=== PATIENT | female | born 1940 | race Caucasian/White ===

== ENCOUNTER 2017-01-26 17:15 | Observation (INO) | payer MEDICARE ==
[~2017-01-26] VITALS: Ht 160 cm; Wt 95.0 kg
[2017-01-26] VITALS (7 sets, daily range): BP systolic 125–158; BP diastolic 42–81; PULSE 71–84; RESP 14–18; O2SAT 97–98
--- NOTE | 2017-01-26 17:25 | ED.REPORT ---
HPI-Neurologic Deficit Date of Service Jan 26, 2017 ED Provider: Dr. Santizo Pt is a 76 year old female with a hx of DJD, HTN and chronic back pain presenting to the ED from complaining of right sided facial numbness that began at 1500 today while gardening. Her daughter in law also reports a right sided facial droop. On arrival she only has top of head numbness. Denies any numb extremities, or any other symptoms at this time. Nursing Notes Stated Complaint: FACIAL NUMBNESS Chief Complaint: Stroke Symptoms Nursing Notes Reviewed: Yes Allergies: Coded Allergies: Sulfa (Sulfonamide Antibiotics) (Verified Allergy, Intermediate, hives, 05/05) clotrimazole (Verified Allergy, Intermediate, rash, 01/26/17) General Time Seen by Provider: 17:29 Chief Complaint Other (Facial numbness) Hx Obtained From: Patient Arrived By: Walk-in Sudden in Onset?: Yes Onset Occurred: 1 - 4 hours ago Symptom Duration: Since onset Severity: Current: No pain currently Severity: Maximum: No pain Recent Healthcare: No recent doctor visit, No recent hospitalization Similar Sx Previous: No Risk Factors NIH Stroke Scale Level of Consciousness: Alert and responsive (0) Ask Month & Age: Both questions right (0) Open/Close Eyes/Hand Mold Unloader: Performs both tasks (0) Horizontal EO Movements: None (0) Visual Sanders: No visual loss (0) Facial Palsy: Normal symmetry (0) Right Arm Motor Drift (10s): No drift 10 sec (0) Left Arm Motor Drift (10s): No drift 10 sec (0) Right Leg Motor Drift (5s): No drift 5 sec (0) Left Leg Motor Drift (5s): No drift 5 sec (0) Limb Ataxia FNF/Heel-Gil: No ataxia (0) Sensation (Arms/Legs/Face): No sensory loss (0) Language Aphasia: No aphasia, normal (0) Dysarthria: No dysarthria, normal (0) Extinction/Inattention: No exctinct/inattent (0) NIHSS Score: 0 Time NIHSS Performed: 17:30 Past Medical History Past Medical History Spinal stenosis Reports: Hypertension Past Surgical History denies Smoking History Unknown if Ever Smoker Ambulatory Status Independent Review of Systems Neurologic: Reports: Numbness (Facial), Denies: Change LOC, Confusion, Focal weakness, Headache, Problem walking, Slurred speech, Syncope, Vision change Complete sys rev & neg: except as marked. Physical Exam Initial Vital Signs Vital Signs (First) Date Time Temp Pulse Resp B/P Pulse Ox O2 Delivery O2 Flow Rate FiO2 01/26/17 17:16 36.9 81 16 127/73 98 Room Air Initial VS: Reviewed ENT: Mucous membranes moist, Conjunctiva normal, No scleral icterus Neck: Supple, Non-tender, Full range of motion Abdomen / GI: Soft, Non-tender, No guarding, No rebound, No distention Extremities: Vascular intact, Neuro intact, No swelling, No tenderness Skin: Warm, Dry, No cyanosis Psychiatric: Mood/affect normal, Behavior normal, Normal thought content General/Constitutional: Awake, Alert, No acute distress, Well appearing, Well developed, Well hydrated Head / Eyes: Atraumatic, Normocephalic, PERRL, EOMI, No nystagmus Respiratory / Chest: Atraumatic, Breath sounds NL, Breath sounds = bilat, No respiratory distress Cardiovascular: Heart rate NL, Regular rhythm, Heart sounds NL, Peripheral circulation NL Neurologic: Oriented X3, Speech NL, No motor deficits, No sensory deficits, CN II - XII intact, Reflexes equal bilat, Cerebellar NL Interpretation & Diagnostics Lab Results Interpretation Result Diagram: 01/26/17 1732 01/26/17 1732 Test 01/26/17 17:32 White Blood Count 8.7th/mm3 (3.8-10.1) Red Blood Count 4.40mil/mm3 (3.90-5.20) Hemoglobin 12.5g/dL (12.0-15.6) Hematocrit 37.5% (35.0-46.0) Mean Corpuscular Volume 85.2fL (81-100) Mean Corpuscular Hemoglobin 28.4pg (27.0-35.0) Mean Corpuscular Hemoglobin Concent 33.3% (32.0-37.0) Red Cell Distribution Width 14.4% (12.3-15.4) Platelet Count 303bil/L (150-400) Neutrophils (%) (Auto) 61.4% (40-74) Lymphocytes (%) (Auto) 22.8% (14-46) Monocytes (%) (Auto) 11.2% (4-12) Eosinophils (%) (Auto) 3.7% (0-5) Basophils (%) (Auto) 0.7% (0-3) Sodium Level 135mEq/L (134-144) Potassium Level 4.1mEq/L (3.5-5.2) Chloride Level 98mEq/L (97-108) Carbon Dioxide Level 19mmol/L (18-29) Blood Urea Nitrogen 17mg/dL (8-27) Creatinine 0.77mg/dL (0.57-1.00) Estimat Glomerular Filtration Rate 104mL/min (>59) Glucose Level 93mg/dL (60-99) Calcium Level 9.4mg/dL (8.5-10.1) Total Bilirubin 0.3mg/dL (0.0-1.2) Aspartate Amino Transf (AST/SGOT) 27U/L (0-50) Alanine Aminotransferase (ALT/SGPT) 15U/L (0-32) Alkaline Phosphatase 36U/L (25-165) Total Protein 7.2g/dL (6.4-8.4) Albumin 4.0g/dL (3.4-5.0) Hold Reeves Top Tube Received (Received) ECG Interpretation ECG Interpretation: RBBB. Time: 18:15 Interpreted by: ED physician Normal ECG Interpretation: Normal rate (72), Normal sinus rhythm CT Head Interpretation IMPRESSION: 1. No acute intracranial process. 2. Moderate atrophy and chronic microvascular ischemic changes. Dictated by: Meagan Cardenas M.D. on 01/26/2017 at 18:07 Study: Head CT no contrast Interpretation / Wet Read by: Interpret - Radiologist Re-Eval/Medical Decision Med Decision/Clinical Course Pt is DNR. Likey a TIA. Patient will be admitted. Aspirin given. Re-Evaluation/Progress : Time of Eval: 18:21 Patient Status: Condition improved Re-Evaluation/Progress Note: Discussed CT results and plan for admission. Pt understands and agrees with plan. Consultation : Referral / Consult Name: Lani Flowers DO Consulted With: Hospitalist Call Returned at: 18:17 Fancy Needleworker: Will see patient, Agrees with plan, Accepts admit Counseled Regarding: Diagnosis, Lab results, Need for follow-up, When/why to return to ED Discharge & Departure Impression: Primary Impression: Transient ischemic attack Transient cerebral ischemia type: unspecified Qualified Code: G45.9 - Transient cerebral ischemic attack, unspecified Disposition: ADMITTED TO HOSPITAL Discharge Condition All VS Reviewed: Yes Condition: Improved Referrals: Michael Orozco MD (PCP) Scribe Attestation Portions of this note were transcribed by Angelica Stevens. I, Dr. Santizo personally performed the history, physical exam and medical decision-making; I reviewed and confirmed the accuracy of the information in the transcribed note. Signed by: Mariajose Orosco, 01/26/17 at 1821. copies to: Michael Orozco MD, Timothy S DO Jan 26, 2017 17:25 ANGELICA STEVENS Jan 26, 2017 17:36
[2017-01-26] MEDS ORDERED: 0.9% Sodium Chloride 1,000 ML IV ONE (17:27)
[2017-01-26 17:46] LABS: BASOPHILS % (AUTO) 0.7 % (0-3); EOSINOPHILS % (AUTO) 3.7 % (0-5); MONOCYTES % (AUTO) 11.2 % (4-12); Mean Corpuscular Hemoglobin 28.4 pg (27.0-35.0); Mean Corpuscular Volume 85.2 fL (81-100); NEUTROPHILS % (AUTO) 61.4 % (40-74); Platelet Count 303 bil/L (150-400)
--- NOTE | 2017-01-26 18:10 | DRSVH ---
PROCEDURE: CT BRAIN WITHOUT CONTRAST ([id number]) INDICATIONS: Stroke TECHNIQUE: Noncontrast 4.5 mm thick angled axial sections acquired from the foramen magnum to the vertex, with c oronal reformats. COMPARISON: None. FINDINGS: Image quality: Excellent. CSF spaces: Basal cisterns are patent. No extra-axial fluid collections. The ventricles are symmet georges in size and shape. Brain: No intracranial bleeds or masses. There is cerebral volume loss for age, with resultant vent ricular and sulcal prominence. There are periventricular and deep white matter chronic small vessel ischemic changes. There is intracranial internal carotid artery atherosclerosis. Skull and face: Calvarium and visualized facial bones appear intact, without suspicious lesions. Sinuses: Visualized sinuses and mastoids are clear. IMPRESSION: 1. No acute intracranial process. 2. Moderate atrophy and chronic microvascular ischemic changes. Dictated by: Meagan Cardenas M.D. on 01/26/2017 at 18:07 Approved by: Meagan Cardenas M.D. on 01/26/2017 at 18:08
[2017-01-26] MEDS ORDERED: Alum-Mag Hydrox-Simeth 30 mL Suspension PO PRN ×2 (18:30→21:10)
[2017-01-26] MEDS ORDERED: Ondansetron 2 mg/mL 2 mL Inj IVPUSH PRN ×2 (18:30→21:10)
[2017-01-26] MEDS ORDERED: LORA10CA9 PO (19:47)
[2017-01-26] MEDS ORDERED: MAGN250T29 PO (19:47)
[2017-01-26] MEDS ORDERED: LACT1CAP65 PO (19:47)
[2017-01-26] MEDS ORDERED: BECL8.7A6 INHALATION (19:47)
[2017-01-26] MEDS ORDERED: HYDR25TA4 PO (19:47)
[2017-01-26] MEDS ORDERED: NYST1POW29 MC (19:47)
[2017-01-26] MEDS ORDERED: LOSA50TA37 PO (19:47)
[2017-01-26] MEDS ORDERED: CALC500T9 PO (19:47)
[2017-01-26] MEDS ORDERED: ALBU8.5H2 INHALATION (19:47)
[2017-01-26] MEDS ORDERED: FENO160T14 PO (19:47)
[2017-01-26] MEDS ORDERED: ESCI20TA38 PO (19:47)
[2017-01-26] MEDS ORDERED: CLOB118S3 TP (19:47)
[2017-01-26] MEDS ORDERED: NAPR250T PO (19:47)
[2017-01-26] MEDS ORDERED: MILK150C2 PO (19:47)
[2017-01-26] MEDS ORDERED: NAPR500T PO (19:48)
--- NOTE | 2017-01-26 19:50 | NUR ---
Admission Note Pt admitted to [facility] at 1935 on stretcher from ER, alert and orientedx3, denies any pain/SOB/N/V/fever/chills. ambulated to bed after arrival,denies dizziness,vertigo, gait steady. BP158/81 HR84 RR18 PYT174% on RA, T36.8. Lung sounds clear, HR regular, no murmur or rubs, Tele applied SR 79 IVCD 1st AVB per quality assurance monitor chassis. Abdomen soft, nontender, BT active, no edema at extremities. Neuro check: Pt states tingling from right top of head to right face, speech normal, no facial droop noted, tongue midline,soft palate symmetrical, full strength at all extremities, no unilateral weakness noted with ambulation, sensation equal bilaterally at face, arms and legs. Call light oriented to pt and within reach, MD visited pt. Care ongoing.
[2017-01-26 20:34] LABS: APPEARANCE,URINE CLEAR (CLEAR,HAZY); COLOR,URINE YELLOW (YELLOW); OCCULT BLOOD,URINE NEGATIVE (NEGATIVE); PH,URINE 7.5 (5.0-8.0); UROBILINOGEN,URINE NORMAL (NORMAL)
[2017-01-26] MEDS ORDERED: Polyethylene Glycol (PEG) 17 Gm Powder PO PRN (21:10)
[2017-01-26] MEDS ORDERED: Labetalol 5 mg/mL 20 mL Inj IVPUSH PRN (21:10)
--- NOTE | 2017-01-26 21:28 | PCM.HPMED ---
Subjective Date of Service Jan 26, 2017 Primary Provider: Admitting Physician: Lani Flowers DO Primary Care Physician: Michael Orozco MD Attending Physician: Constanza Horton DO Admit Status: From the Emergency Department Chief Complaint: Right-sided facial numbness History of Present Illness: Flower Clancy is a 2-year-old woman with past medical history significant for DJD, hypertension and chronic back pain who presented to the [facility] emergency department from urgent care due to right-sided facial numbness that began at approximately 1500 today while gardening. The patient's symptoms resolved in about 1.5 hours after onset. She was with a family member who noted that she was having facial asymmetry and drooping on the right side. She also noted that the patient was slurring some of her words. The patient does not recall the slurring. Patient denies any change in cognition and recalls the entire events. She is no such prior episodes. Denies any gait instability or unilateral weakness of upper or lower extremities. She denies any blurred vision or headache. She does have a history of vertigo and does occasionally have dizziness. She does have a history of cold sores. When describing her numbness she does note that it was only on the lower half of her face and her drooping was only noted around the mouth but spared the forehead. NIH stroke scale performing emergency department was 0. In the emergency department her vitals were stable. CT brain was negative for any intra-cranial abnormality. Review of Systems: A comprehensive review of systems was conducted with the patient and found to be negative except as above in the History of Present Illness. Allergies Coded Allergies: Sulfa (Sulfonamide Antibiotics) (Verified Allergy, Intermediate, hives, 05/05) clotrimazole (Verified Allergy, Intermediate, rash, 01/26/17) Home Medications Losartan 50 mg daily Fenofibrate 150 mg daily Albuterol Qvar Escitalopram 20 mg daily Hydrochlorothiazide 25 mg daily Loratadine Naprosyn as needed for pain PMH DJD Spinal stenosis Hypertension Hyperlipidemia Depression Gluten Intolerance Surgical History Denies any past surgeries Family History Patient's father had a triple coronary artery bypass at age of 55 Social History Hx Alcohol Use: No Hx Substance Use: No Hx Tobacco Use: No Smoking Status: Never Smoker Exam Vital Signs Vital Sign - Last Date Time Temp Pulse Resp B/P Pulse Ox O2 Delivery O2 Flow Rate FiO2 01/26/17 19:33 36.9 77 16 130/66 97 Room Air Exam General: No acute distress, well-developed, well-nourished, appropriately interactive HEENT: Normocephalic, atraumatic. External ears without defect. Pupils equal, round, and reactive to light and accommodation. Anicteric sclerae, moist conjunctivae, and no lid lag. Oropharynx free of erythema and cobble stoning with moist mucosa. Neck: Supple with full range of motion. No jugular venous distension. No bruits. No lymphadenopathy or thyromegaly. Cardiovascular: Regular rate and rhythm with a grade 2 crescendo decrescendo systolic murmur Pulmonary: Clear to auscultation bilaterally with no crackles, wheezes, or rhonchi. Normal respiratory effort with no use of accessory muscles. Abdomen: Bowel tones present. Obese. Soft, nontender, nondistended. No hepatosplenomegaly or masses appreciated. Extremities: No clubbing, cyanosis, edema, or lymphadenopathy appreciated. Skin: Normal temperature, turgor, and texture; no rash, ulcers, or subcutaneous nodules appreciated. Neurological: Cranial nerves 2 through 12 bilaterally intact. Normal muscle strength, tone, and bulk of bilateral upper and lower extremities. Reflexes, coordination, and sensory function within normal limits. No known gait impairment. Benign neurological exam. Psychiatric: Normal mood and affect. Alert and oriented to person, place, and time. Lab and Diagnostics Result Diagram: 01/26/17 1732 01/26/17 173 X-Rays, CTs and MRIs CT BRAIN WITHOUT CONTRAST IMPRESSION: 1. No acute intracranial process. 2. Moderate atrophy and chronic microvascular ischemic changes. Dictated by: Meagan Cardenas M.D. on 01/26/2017 at 18:07 Assessment & Plan Flower Clancy is a 2-year-old woman with past medical history significant for DJD, hypertension and chronic back pain who presented to the [facility] emergency department from urgent care due to right-sided facial numbness that began at approximately 1500 today while gardening. Transient ischemic attack, present on admission, resolved -ABCD 2 score of 4 which correlates to a moderate risk of a CVA. Her 90 day progress is about 10%. -MRI stroke protocol tomorrow, CT angiogram head and neck tomorrow -Echocardiogram with bubble study -Telemetry monitoring -A1c, fasting lipid panel -ST, PT, OT -Permissive hypertension for 24 hours. We will hold off on giving the patient' s blood pressure medication today. Chronic issues, present on admission: Hypertension -Hold blood pressure medications today Hyperlipidemia -Check lipid panel -Initiate low-dose statin Asthma -Continue albuterol and Qvar Depression -Continue Escitalopram 20 mg daily CODE STATUS: DNR/DNI Patient is admitted under observation status with expected length of stay less than 2 midnights due to severity of presenting symptoms, risk of adverse event, and complexity of treatment plan. VTE Prophylaxis: Sub-Q Heparin (Unfractionated) Resuscitation Status: DNR/DNI:Do Not Resuscitate/Intubate Attending Statement The patient was seen and examined together with house staff on 01/26/2017 and I agree with the history, exam and plan as outlined in the note above. Lani Flowers DO Jan 26, 2017 19:35 Constanza Bartholomew DO Jan 27, 2017 05:33
[2017-01-26] MEDS ORDERED: CLOBETASOL PROPIONATE TP PRN (21:35)
[2017-01-26] MEDS ORDERED: Non-Formulary Medication (Nystatin 1 EACH) MC PRN (21:35)
[2017-01-27] VITALS (9 sets, daily range): BP systolic 110–133; BP diastolic 59–73; PULSE 69–88; RESP 18–20; O2SAT 95–99
[2017-01-27] MEDS ORDERED: Albuterol 2.5 mg/3 mL Inhalation Solution NEB PRN (07:00)
[2017-01-27] MEDS ORDERED: Fluticasone 100 mCg Inhaler INHALATION PRN (08:30)
--- NOTE | 2017-01-27 09:13 | NUR ---
Social Work-initial assessment/readiness for discharge: Data:See initial assessment. Pt is a 76 y/o female who was admitted on 01/26/17 for TIA per H&P. Pt's insurance is [employer] and PCP is Michael Orozco MD. EMR Reviewed. Pt's readmission score is 2. SW met with pt and daughter Lizzy at Bedside, SW role explained. Pt is alert and oriented x3. Pt resides at home with son Patrick and daughter in law Joi in [facility] where she remains independent with ADLS. Pt has capacity to self care, MD has no concerns, and pt is able to follow instructions and commands with RN. Pt uses either a cane or fww at baseline and does drive. Pt has no HH or SNF history. Pt has no intermediate accountant care insurance or VA benefits. SW discussed DPOA/ advanced directive, pt confirms she has not completed this, paperwork has been provided. PT, OT, and ST are pending. Pt's daughter Lizzy confirms she will be transport home. SW provided pt with discharge planning checklist booklet and encouraged pt to call with any questions. SW provided phone number and plan on white board in room. No anticipate discharge needs. SW to follow up post therapy evaluations if any needs arise. SW will continue to follow. Assessment:pt who is independent at baseline. Plan:Pt to discharge home when medically stable via POV. No anticipate discharge needs. SW to follow up post therapy evaluations if any needs arise. SW will continue to follow. POLI Mejia Addendum: 01/27/17 at 0918 by CARLOS LOVE Amended: Links added. Addendum: 01/27/17 at 1104 by CARLOS LOVE PT/OT/ST have cleared pt for home. Pt recommending outpt PT. POLI Mejia
--- NOTE | 2017-01-27 09:18 | NUR ---
Evaluation completed. Please go to "Notes" then click on "Assessments and Notes" (bottom left corner of screen). Then select appropriate discipline tab on top of screen.
--- NOTE | 2017-01-27 09:51 | NUR ---
Evaluation completed. Please go to "Notes" then click on "Assessments and Notes" (bottom left corner of screen). Then select appropriate discipline tab on top of screen.
--- NOTE | 2017-01-27 10:27 | NUR ---
Case Management: PALOMINO and Medicare Part D pamphlet delivered and explained to patient. Signed original placed in chart. Copy left at bedside. Malia Trujillo RN
--- NOTE | 2017-01-27 11:05 | NUR ---
Social Work-multidisciplinary rounds: Per MD, pt will likely not be ready to discharge today, maybe tomorrow. PT/OT/ST have cleared pt for home, PT recommending outpt services. No anticipated discharge needs. POLI Mejia
--- NOTE | 2017-01-27 12:51 | NUR ---
Evaluation completed. Please go to "Notes" then click on "Assessments and Notes" (bottom left corner of screen). Then select appropriate discipline tab on top of screen.
--- NOTE | 2017-01-27 13:08 | DRSVH ---
[facility] [address] [place] [address] Echocardiogram Report Name: PHANI LOMAS HStudy Date: 01/27/2017 Height: 63 in Hospital Exam Location: [facility] Weight: 209 lb Gender: Female BSA: 2.0 m2 : 1940 Age: 76 yrs BP: 122/69 mmHg Reason For Study: TIA Ordering Physician: Performed By: Catherine Castro Referring Physician: Michael Orozco Interpretation Summary There is mild asymmetric left ventricular hypertrophy. Left ventricular systolic function is normal. The ejection fraction is estimated to be 65-70%. LVEF has not changed since prior study. There are no obvious focal wall motion abnormalities noted but poor endocardial definition reduces the sensitivity for the detection of such. There appears to be outflow obstruction with peak velocity reaching ~3.3 m/sec during Valsalva maneuver s. Visually there is no gross findings for systolic anterior motion of anterior mitral leaflet but there appears to be mid LV cavity obstruction. Clinicall correlation is recommended. The right ventricle is normal in size and function. The left atrium is mildly dilated. Right atrial size is normal. Injection of contrast documented no interatrial shunt. There is moderate aortic valve sclerosis. There is no hemodynamically significant valvular aortic stenosis. There is moderate to severe mitral annular calcification. There is no other significant valvular heart disease. The aortic root is normal size. Procedure: A two-dimensional transthoracic echocardiogram with color flow and Doppler was performed. The study quality was technically adequate. Comparison is made with the echocardiogram of 07-21-13. The patient was in normal sinus rhythm during the exam. Left Ventricle: The left ventricle is normal in size. There is mild asymmetric left ventricular hypertrophy. There appears to be outflow obstruction with peak velocity reaching ~3.3 m/sec during Valsalva maneuver s. Visually there is no gross findings for systolic anterior motion of anterior mitral leaflet but there appears to be mid LV cavity obstruction. Clinicall correlation is recommended. Left ventricular systolic function is normal. The ejection fraction is estimated to be 65-70%. There are no obvious focal wall motion abnormalities noted but poor endocardial definition reduces the sensitivity for the detection of such. Diastolic function could not be accurately assessed due to confounding valvular disease. Right Ventricle: The right ventricle is normal in size and function. Atria: The left atrium is mildly dilated. Right atrial size is normal. Injection of contrast documented no interatrial shunt. Mitral Valve: The mitral valve leaflets appear mildly thickened, but open well. There is moderate to severe mitral annular calcification. There is trace mitral regurgitation. Aortic Valve: There is moderate aortic valve sclerosis. Leaflet mobility is mildly reduced. There is no hemodynamically significant valvular aortic stenosis. No aortic regurgitation is present. Tricuspid Valve: The tricuspid valve is normal in structure and function. No tricuspid regurgitation. Pulmonic Valve: The pulmonic valve is not well visualized. There is no pulmonic valvular regurgitation. There is no other significant valvular heart disease. Great Vessels: The aortic root is normal size. The dimensions of the ascending aorta are normal. The IVC is of normal diameter and collapses greater than 50% with a sniff. This suggests a low right atrial pressure of 3 mm Hg. Pericardium/ Pleura There is no pericardial effusion. There is no pleural effusion. MMode/2D Measurements & Calculations LVIDd LA dimension: 3.7 cm RA long axis: 4.7 cm LVOT diam: 2.0 cm : 3.9 cm AoV Openin.3 cm LVIDs LA A2 area: 24.2 cm RA area: 13.3 cm Ao root diam : 2.0 cm LA A4 area: 24.3 cm RA vol: 32.0 ml FS: 49.9 % LA length (vol) RA : 16.2 ml/m Aortic Jxn: 2.9 cm IVSd: 1.2 cm RVDd major: 5.5 cm asc Aorta Diam LVPWd LA vol: 76.8 ml : 0.8cm LA vol index Ao Arch Diam (Prox Trans): 2.9 cm IVC diam: 1.5 cm DAREK (plan) LV jeong. diameter/BSA LV sys. diameter/BSA RVD1 (basal) : 2.8 cm2 (cm/m^2): 2.0 (cm/m^2): 0.99 : 3.9 cm RVD2 (mid) : 3.5 cm Doppler Measurements & Calculations Ao V2 max MV E max anirudh MV E/A: 0.84 PA V2 max : 186.0 cm/sec : 137.6 cm/sec Med Peak E' Anirudh : 76.7 cm/sec Ao max PG MV A max anirudh PA mean PG : 13.8 mmHg : 162.9 cm/sec E/E' med: 29.0 Ao mean PG MV P1/2t: 89.4 msec Lat Peak E' Anirudh PA Accel Time : 0.18 sec LVOT Max Anirudh E/E' lat: 24.7 : 103.1 cm/sec E/e' average DAREK(I,D): 2.0 cm sev ratio MV A dur: 0.17 sec MV dec time MV P1/2t max anirudh Ao V2 mean LV V1 max PG : 0.31 sec : 121.7 cm/sec MVA(P1/2t): 2.5 cm2 Ao V2 VTI: 41.2 cm LV V1 VTI DAREK(V,D): 1.7 cm2 : 26.8 cm PA V2 mean DAREK indexed to BSA : 49.9 cm/sec (cm^2/m^2): 1.00 Reading Physician:KERRI
--- NOTE | 2017-01-27 13:33 | DRSVH ---
PROCEDURE: MRI STROKE PROTOCOL ([id number]) Pre- and post-contrast brain MRI, non-contrast brain MR angiogram, pre- and postcontrast neck MR kiko ogram INDICATIONS: TIA TECHNIQUE: Brain: Noncontrast axial T1 spin echo, axial T2 fast spin echo, sagittal and axial FLAIR, coronal T2 fast spin echo, axial gradient echo, axial diffusion and ADC through the brain. After the administr ation of contrast, axial 3D VIBE of the cranial vasculature and brain. Brain MRA: Non-contrast 3-D time of flight MR angiogram, with multiple comvamz-asbdxxger-rdszempjfe (MIP) reformats performed. Neck MRA: Axial and sagittal TruFISP through the neck. Coronal dynamic MR angiogram during administ ration of contrast in the arterial and venous phases, with 3-dimenstional bsjmmsd-lnlqwqkjj-ptgffxvxk n (MIP) reformats constructed from subtraction images. COMPARISON: None. FINDINGS: Image quality: Excellent. BRAIN: CSF spaces: Ventricles are normal in size and shape. Basal cisterns are patent. No extra-axial flu id collections. Brain: No intracranial bleeds or mass effects. Hutchison-white matter interface is normal. Diffusion we ighted images show no acute ischemic insults. Brainstem appears normal. Normal intravascular flow v oids are present. No abnormal intracranial enhancement. Skull and face: Calvarial marrow signal is normal. Orbits appear normal. Sinuses: Sinuses and mastoids are clear. BRAIN MR ANGIOGRAM: Anterior circulation: Intracranial internal carotid arteries are normal in size and enhancement. Th e flow within the paired anterior cerebral arteries is normal and symmetric. The flow within the mid dle cerebral arteries is normal and symmetric. The anterior communicating artery is seen. No stenos es, occlusions, or aneurysms. Posterior circulation: The visualized portions of the vertebral arteries demonstrate normal caliber, and join to form a normal appearing basilar artery. The flow within the posterior cerebral arteries is normal and symmetric. No stenoses, occlusions, or aneurysms. NECK MR ANGIOGRAM: Carotids: Great vessels demonstrate a conventional anatomy as they arise from the aortic arch. The origins of the common carotid arteries appear patent. The calibers and courses of both common caroti d arteries are normal. The bifurcation regions appear normal bilaterally. The internal carotid luz maria hua demonstrate normal course and caliber. Posterior circulation: The origins of the vertebral arteries appear patent. More superior portions of both vertebral arteries demonstrate normal course and caliber, and join to form a normal appearing basilar artery. It is noted that there are several areas of short segment stenosis bilaterally with in the midportion of the vertebral arteries, less than 50% on the right and approximately 50% on the left. Miscellaneous: Subclavian arteries appear patent. Pre-contrast images through the neck show no soft tissue abnormalities. IMPRESSION: 1. No acute intracranial process. 2. Mild atrophy and chronic microvascular ischemic changes. 3. No areas of hemodynamically significant stenosis, vascular occlusion or aneurysmal dilation within the posterior circulation. 4. No areas of hemodynamically significant stenosis, vascular occlusion or aneurysmal dilation within the anterior circulation. 5. Several scattered areas of short segment stenosis within the mid vertebral arteries as above. Othe rwise, no areas of hemodynamically significant stenosis, vascular occlusion or aneurysmal dilation wi thin the neck vasculature. The estimate of stenosis included in the report of the imaging study was calculated using the NASCET method Dictated by: Meagan Cardenas M.D. on 01/27/2017 at 13:20 Approved by: Meagan Cardenas M.D. on 01/27/2017 at 13:31
[2017-01-27] MEDS: Heparin 5,000 Unit/mL Inj SUBQ SCH (18:36)
--- NOTE | 2017-01-27 19:14 | NUR ---
Neuros Some numbness on R side of head this AM. Further neuros WNL and baseline. Provider contacting neurology. Plan is to d/c in AM. Tele in place, SL and IND activity with cane.
--- NOTE | 2017-01-27 23:49 | PCM.PNMED ---
Subjective Date of Service Jan 27, 2017 Subjective Patient is seen and examined. She says that she has only had symptoms for an hour and half which resolved upon arrival to the ER after a few minutes. She has been feeling fine just wanting to know the results of her tests. She says that in the past she has not tolerated statin that she was put on fenofibrate it does not appear that she has aspirin daily aspirin at home. Exam Vital Signs Vital Sign - Last Date Time Temp Pulse Resp B/P Pulse Ox O2 Delivery O2 Flow Rate FiO2 01/27/17 12:37 36.7 75 18 110/62 97 Room Air Intake and Output 01/26/17 01/26/17 01/27/17 Cumulative From/Thru 15:00 23:00 07:00 01/26/17 17:16 - 01/27/17 06:32 Intake Total 1000 ml 300 ml 1300 ml Output Total 250 ml 900 ml 1150 ml Balance 750 ml -600 ml 150 ml Intake Oral 300 ml 300 ml IV Total 1000 ml 1000 ml Output Urine Total 250 ml 900 ml 1150 ml # Bowel Movements 0 0 Exam Gen.: No acute distress HEENT: Normocephalic, atraumatic Heart: Regular rate and rhythm no S3-S4 murmurs Lungs: Clear to auscultation no crackles or wheezes Abdomen soft nontender normal bowel sounds Neurological exam: Cranial nerves II-12 are grossly normal, gagging deferred and Babinski's, Romberg's, alternating hands, finger to nose test unremarkable Psych: No anxiety or agitation IVs and Medications IV Fluids None Medications Reviewed: Medications were reviewed in detail Lab and Diagnostics Result Diagram: 01/26/17 1732 01/26/171731 X-Rays, CTs and MRIs CT BRAIN WITHOUT CONTRAST IMPRESSION: 1. No acute intracranial process. 2. Moderate atrophy and chronic microvascular ischemic changes. Dictated by: Meagan Cardenas M.D. on 01/26/2017 at 18:07 Additional Diagnostics There is mild asymmetric left ventricular hypertrophy. Left ventricular systolic function is normal. The ejection fraction is estimated to be 65-70%. LVEF has not changed since prior study. There are no obvious focal wall motion abnormalities noted but poor endocardial definition reduces the sensitivity for the detection of such. There appears to be outflow obstruction with peak velocity reaching ~3.3 m/sec during Valsalva maneuver s. Visually there is no gross findings for systolic anterior motion of anterior mitral leaflet but there appears to be mid LV cavity obstruction. Clinicall correlation is recommended. The right ventricle is normal in size and function. The left atrium is mildly dilated. Right atrial size is normal. Injection of contrast documented no interatrial shunt. There is moderate aortic valve sclerosis. There is no hemodynamically significant valvular aortic stenosis. There is moderate to severe mitral annular calcification. There is no other significant valvular heart disease. The aortic root is normal size. Assessment & Plan Flower Clancy is a 2-year-old woman with past medical history significant for DJD, hypertension and chronic back pain who presented to the [facility] emergency department from urgent care due to right-sided facial numbness that began at approximately 1500 today while gardening. Transient ischemic attack, present on admission, resolved -ABCD 2 score of 4 which correlates to a moderate risk of a CVA. Her 90 day progress is about 10%. -MRI stroke protocol tomorrow, CT angiogram head and neck tomorrow -Echocardiogram with bubble study -Telemetry monitoring -A1c, is 5.6 -fasting lipid panel within normal -ST, PT, OT -Permissive hypertension for 24 hours. We will hold off on giving the patient' s blood pressure medication for 24 hrs. - TTE showed: "There is mild asymmetric left ventricular hypertrophy. Left ventricular systolic function is normal. The ejection fraction is estimated to be 65-70%. LVEF has not changed since prior study. There are no obvious focal wall motion abnormalities noted but poor endocardial definition reduces the sensitivity for the detection of such. There appears to be outflow obstruction with peak velocity reaching ~3.3 m/sec during Valsalva maneuver s.Visually there is no gross findings for systolic anterior motion of anterior mitral leaflet but there appears to be mid LV cavity obstruction. Clinicall correlation is recommended. The right ventricle is normal in size and function. The left atrium is mildly dilated. Right atrial size is normal. Injection of contrast documented no interatrial shunt. There is moderate aortic valve sclerosis. There is no hemodynamically significant valvular aortic stenosis. There is moderate to severe mitral annular calcification. There is no other significant valvular heart disease. The aortic root is normal size." -- Started on daily aspirin, atorvastatin, heparin subcutaneous for prophylaxis -- Discussed case with Dr. Olguin from [facility] neurology who reviewed her MRI imaging, he does not see a need for immediate follow-up for this but perhaps in a year. -- Discussed the echo findings with Dr. High would get the echo, he says that she may be dehydrated the obstruction that was noted in the echo is not structural rather it is a functional one. He recommends the patient does not get dehydrated, she does not lift weights, and limit bearing down her Valsalva type maneuvers as she might become syncopal from lack of cardiac output Chronic issues, present on admission: Hypertension chronic active -BP meds are restarted -- Hyperlipidemia, chronic active -Lipid PanelWithin normal - Patient is an atorvastatin 10 mg daily tolerated just fine Asthma -Continue albuterol and Qvar Depression -Continue Escitalopram 20 mg daily CODE STATUS: DNR/DNI Patient is admitted under observation status with expected length of stay less than 2 midnights due to severity of presenting symptoms, risk of adverse event, and complexity of treatment plan. Patient can be discharged home in the a.m. on statin, ziol patch as she has some left atrial dilation, aspirin VTE Prophylaxis: Sub-Q Heparin (Unfractionated) VTE Mechanical Devices: Intermittant Pneumatic CD Resuscitation Status: DNR/DNI:Do Not Resuscitate/Intubate Time spent 45 min Carla Dominique DO Jan 27, 2017 14:42
[2017-01-28] MEDS: Heparin 5,000 Unit/mL Inj SUBQ SCH ×2 (00:36→08:30)
--- NOTE | 2017-01-28 05:23 | NUR ---
Noc/Activity Pt is alert and oriented. Pleasant and cooperative with care. No slurring of speech or tongue deviation. Symmetrical smile noted. Bilateral equal bar tender and lower extremity strength for age. Reports of numbness on the right side of scalp. HS meds administered as scheduled. VSS and has been afebrile.
[2017-01-28 09:07] VITALS: BP 122/68; PULSE 78; RESP 18; O2SAT 97
--- NOTE | 2017-01-28 10:00 | NUR ---
Brain MRI negative for acute changes. Swallowing function is at baseline. ST will sign off at this time.
--- NOTE | 2017-01-28 10:37 | NUR ---
Social Work-multidisciplinary rounds: Per MD, pt will likely discharge home today. PT/OT have cleared pt for home no needs. No discharge needs identified. POLI Mejia
[2017-01-28 11:20] VITALS: PULSE 85
[2017-01-28] MEDS ORDERED: ATOR10TA66 PO (12:57)
[2017-01-28] MEDS ORDERED: ASPI325T32 PO (12:59)
--- NOTE | 2017-01-28 13:18 | PCM.DIMED ---
Discharge Instructions Date of Service Jan 28, 2017 Dates of Hospitalization Jan 26, 2017 at 19:21 Discharge Diagnosis Discharge Diagnosis TIA, HTN, chronic back pain, Hyperlipidemia Diet Discharge Diet: Heart Healthy Activity Discharge Activity: Outpatient Physical Therapy Call your provider Call your provider for: Fever or Chills, Shortness of breath, Bleeding, Chest pain, Vomitting, Excessive diarrhea, Weakness (unilateral), Other Patient Instructions Patient Instructions Please take aspirin, and statin daily Please f/u with o/p physical therapy Follow-up plan F/U with PCP 1-2 weeks F/U with Neurology [facility] in 1 month F/U with PCP for a ziopatch. Please use tylenol in stead of Ibuprofen or naproxen for pain control. Very limited use of NASID once or twice a week if pain is severe. Carla Dominique DO Jan 28, 2017 13:03
--- NOTE | 2017-01-28 13:37 | NUR ---
Social Work-discharge: Data:EMR Reviewed. Pt is on day 2 of hospitalization for TIA per H&P. Pt is medically stable for discharge. PT/OT/ST have cleared pt for home no needs. Pt recommending outpt PT services. SW confirmed plan of home no needs. Pt's family to provide transport home. No discharge needs identified. All updated and agreeable to plan. Assessment:pt who is independent at baseline. Plan:Pt to discharge home with family today via POV. No discharge needs identified. All updated and agreeable to plan. POLI Mejia
--- NOTE | 2017-01-28 14:32 | NUR ---
Discharge Patient discharge to home with all belongings. Explained to patient new medications (aspirin and atorvastatin), when next doses are due and discharge instructions. Patient verbalized understanding. Dc'd IV intact. Dc'd telemetry. Vitals stable. Patient left floor via wheelchair accompanied by this RN and [id number] with no signs of distress.
--- NOTE | 2017-01-29 01:11 | PCM.DC.MED ---
Discharge Summary Date of Service Jan 28, 2017 Dates of Hospitalization Date of Hospital Admission Jan 26, 2017 at 19:21 Date of Discharge: Jan 28, 2017 Providers: Admitting Physician: Lani Flowers DO Primary Care Physician: Michael Orozco MD Attending Physician: Carla Moffett DO Diagnosis at Time of Discharge Diagnosis at Time of Discharge TIA, HTN, chronic back pain, Hyperlipidemia Procedures XRay, CTs & MRIs CT BRAIN WITHOUT CONTRAST IMPRESSION: 1. No acute intracranial process. 2. Moderate atrophy and chronic microvascular ischemic changes. Dictated by: Meagan Cardenas M.D. on 01/26/2017 at 18:07 Other Diagnostics There is mild asymmetric left ventricular hypertrophy. Left ventricular systolic function is normal. The ejection fraction is estimated to be 65-70%. LVEF has not changed since prior study. There are no obvious focal wall motion abnormalities noted but poor endocardial definition reduces the sensitivity for the detection of such. There appears to be outflow obstruction with peak velocity reaching ~3.3 m/sec during Valsalva maneuver s. Visually there is no gross findings for systolic anterior motion of anterior mitral leaflet but there appears to be mid LV cavity obstruction. Clinicall correlation is recommended. The right ventricle is normal in size and function. The left atrium is mildly dilated. Right atrial size is normal. Injection of contrast documented no interatrial shunt. There is moderate aortic valve sclerosis. There is no hemodynamically significant valvular aortic stenosis. There is moderate to severe mitral annular calcification. There is no other significant valvular heart disease. The aortic root is normal size. Brief History Flower Clancy is a 2-year-old woman with past medical history significant for DJD, hypertension and chronic back pain who presented to the [facility] emergency department from urgent care due to right-sided facial numbness that began at approximately 1500 today while gardening. The patient's symptoms resolved in about 1.5 hours after onset. She was with a family member who noted that she was having facial asymmetry and drooping on the right side. She also noted that the patient was slurring some of her words. The patient does not recall the slurring. Patient denies any change in cognition and recalls the entire events. She is no such prior episodes. Denies any gait instability or unilateral weakness of upper or lower extremities. She denies any blurred vision or headache. She does have a history of vertigo and does occasionally have dizziness. She does have a history of cold sores. When describing her numbness she does note that it was only on the lower half of her face and her drooping was only noted around the mouth but spared the forehead. NIH stroke scale performing emergency department was 0. In the emergency department her vitals were stable. CT brain was negative for any intra-cranial abnormality. Hospital Course Flower Clancy is a 2-year-old woman with past medical history significant for DJD, hypertension and chronic back pain who presented to the [facility] emergency department from urgent care due to right-sided facial numbness that began at approximately 1500 today while gardening. Transient ischemic attack, present on admission, resolved -ABCD 2 score of 4 which correlates to a moderate risk of a CVA. Her 90 day progress is about 10%. -Telemetry monitoring -A1c, is 5.6 -fasting lipid panel within normal -ST, PT, OT -Permissive hypertension for 24 hours. We will hold off on giving the patient' s blood pressure medication for 24 hrs. - TTE showed: "There is mild asymmetric left ventricular hypertrophy. Left ventricular systolic function is normal. The ejection fraction is estimated to be 65-70%. LVEF has not changed since prior study. There are no obvious focal wall motion abnormalities noted but poor endocardial definition reduces the sensitivity for the detection of such. There appears to be outflow obstruction with peak velocity reaching ~3.3 m/sec during Valsalva maneuver s.Visually there is no gross findings for systolic anterior motion of anterior mitral leaflet but there appears to be mid LV cavity obstruction. The left atrium is mildly dilated. Right atrial size is normal. Injection of contrast documented no interatrial shunt.There is moderate aortic valve sclerosis." -- Started on daily aspirin, atorvastatin, heparin subcutaneous for prophylaxis -- Discussed case with Dr. Olguin from [facility] neurology who reviewed her MRI imaging, he does not see a need for immediate follow-up for this but perhaps in a year. -- Discussed the echo findings with Dr. High would get the echo, he says that she may be dehydrated the obstruction that was noted in the echo is not structural rather it is a functional one. He recommends the patient does not get dehydrated, she does not lift weights, and limit bearing down her Valsalva type maneuvers as she might become syncopal from lack of cardiac output. These recommendations are passed on to the patient. -- On the day of d/c, pt is ambulating in the hallways, tolerating normal diet. -- We recommend that pt obtains a holter monitor or zio patch via her PCP Chronic issues, present on admission: Hypertension chronic active -BP meds are restarted -- Hyperlipidemia, chronic active -Lipid PanelWithin normal - Patient is an atorvastatin 10 mg daily tolerated just fine --Discontinue fenofibrate Asthma -Continue albuterol and Qvar Depression -Continue Escitalopram 20 mg daily CODE STATUS: DNR/DNI Patient is admitted under observation status with expected length of stay less than 2 midnights due to severity of presenting symptoms, risk of adverse event, and complexity of treatment plan. Patient can be discharged home in the a.m. on statin, ziol patch as she has some left atrial dilation, aspirin Exam Vital Signs (Last) Date Time Temp Pulse Resp B/P Pulse Ox O2 Delivery O2 Flow Rate FiO2 01/28/17 11:20 85 01/28/17 09:07 36.4 18 122/68 97 Room Air Exam General: No acute distress, well-developed, well-nourished, appropriately interactive HEENT: Normocephalic, atraumatic. Neck: Supple with full range of motion. No jugular venous distension. No bruits. Cardiovascular: Regular rate and rhythm with a grade 2 crescendo decrescendo systolic murmur Pulmonary: Clear to auscultation bilaterally with no crackles, wheezes, or rhonchi. Normal respiratory effort with no use of accessory muscles. Abdomen: Bowel tones present. Obese. Soft, nontender, nondistended. No hepatosplenomegaly or masses appreciated. Skin: Normal temperature, turgor, and texture; no rash, ulcers, or subcutaneous nodules appreciated. Neurological: Cranial nerves 2 through 12 bilaterally intact. Normal muscle strength, tone, and bulk of bilateral upper and lower extremities. Psychiatric: Normal mood and affect. Alert and oriented to person, place, and time. Test 01/26/17 17:32 01/26/17 20:11 01/27/17 05:23 White Blood Count 8.7th/mm3 (3.8-10.1) Red Blood Count 4.40mil/mm3 (3.90-5.20) Hemoglobin 12.5g/dL (12.0-15.6) Hematocrit 37.5% (35.0-46.0) Mean Corpuscular Volume 85.2fL (81-100) Mean Corpuscular Hemoglobin 28.4pg (27.0-35.0) Mean Corpuscular Hemoglobin Concent 33.3% (32.0-37.0) Red Cell Distribution Width 14.4% (12.3-15.4) Platelet Count 303bil/L (150-400) Neutrophils (%) (Auto) 61.4% (40-74) Lymphocytes (%) (Auto) 22.8% (14-46) Monocytes (%) (Auto) 11.2% (4-12) Eosinophils (%) (Auto) 3.7% (0-5) Basophils (%) (Auto) 0.7% (0-3) Sodium Level 135mEq/L (134-144) Potassium Level 4.1mEq/L (3.5-5.2) Chloride Level 98mEq/L (97-108) Carbon Dioxide Level 19mmol/L (18-29) Blood Urea Nitrogen 17mg/dL (8-27) Creatinine 0.77mg/dL (0.57-1.00) Estimat Glomerular Filtration Rate 104mL/min (>59) Glucose Level 93mg/dL (60-99) Hemoglobin A1c 5.6% (4.8-5.6) Calcium Level 9.4mg/dL (8.5-10.1) Total Bilirubin 0.3mg/dL (0.0-1.2) Aspartate Amino Transf (AST/SGOT) 27U/L (0-50) Alanine Aminotransferase (ALT/SGPT) 15U/L (0-32) Alkaline Phosphatase 36U/L (25-165) Total Protein 7.2g/dL (6.4-8.4) Albumin 4.0g/dL (3.4-5.0) Hold Reeves Top Tube Received (Received) Urine Color Yellow (YELLOW) Urine Appearance Clear (CLEAR,HAZY) Urine pH 7.5 (5.0-8.0) Urine Specific [place] <1.005 (1.003-1.035) Urine Protein Negativemg/dL (NEG,TRACE) Urine Glucose (UA) Negativemg/dL (NEGATIVE) Urine Ketones Negativemg/dL (NEGATIVE) Urine Occult Blood Negative (NEGATIVE) Urine Nitrite Negative (NEGATIVE) Urine Bilirubin Negative (NEGATIVE) Urine Urobilinogen Normalmg/dL (NORMAL) Urine Leukocyte Esterase Negative (NEGATIVE) Urine RBC 0-2/hpf (0-2) Urine WBC 0-5/hpf (0-5) Urine Epithelial Cells Few/hpf (NONE-MOD) Urine Crystals None seen (NONE SEEN) Urine Bacteria Few/hpf (NONE-FEW) Urine Hyaline Casts None/lpf (NONE) Urine Granular Casts None seen (NONE SEEN) Urine Waxy Casts None seen (NONE SEEN) Urine Red Blood Cell Casts None seen (NONE SEEN) Urine White Blood Cell Casts None seen (NONE SEEN) Urine Mucus None seen (None Seen) Urine Trichomonas None seen (NONE SEEN) Urine Yeast None (NONE SEEN) Urinalysis Comment None Urine Culture Reflexed Not indicated Triglycerides Level 83mg/dL (0-149) Cholesterol Level 111mg/dL (100-199) LDL Cholesterol, Calculated 57.400mg/dL (0-99) VLDL Cholesterol 16.600mg/dL HDL Cholesterol 37mg/dL (>39) Cholesterol/HDL Ratio 3.00 (0.0-4.4) Discharge Medications Discharge Medications Aspirin (Aspirin) 325 Mg Tablet 325 MG PO DAILY Prescribed by: CARLA MOFFETT DO Atorvastatin Calcium (Atorvastatin Calcium) 10 Mg Tablet 10 MG PO HS Prescribed by: CARLA MOFFETT DO Calcium Carbonate (Tums) 500 Mg Tab.chew 500 MG PO DAILY (Reported) Escitalopram Oxalate (Escitalopram Oxalate) 20 Mg Tablet 20 MG PO HS (Reported) Hydrochlorothiazide (Hydrochlorothiazide) 25 Mg Tablet 25 MG PO DAILY (Reported ) Lactobacillus Acidophilus (Probiotic) 1 Each Capsule 1 EACH PO DAILY (Reported) Loratadine (Loratadine) 10 Mg Capsule 10 MG PO DAILY (Reported) Losartan Potassium (Losartan Potassium) 50 Mg Tablet 50 MG PO DAILY (Reported) Magnesium Oxide (Magnesium) 250 Mg Tablet 250 MG PO DAILY (Reported) Milk Thistle (Milk Thistle) 150 Mg Capsule 150 MG PO DAILY (Reported) As needed Albuterol HFA (Proair HFA) 8.5 Gm Hfa.aer.ad 1-2 PUFFS INHALATION Q4H PRN PRN For Shortness of Breath (Reported) Beclomethasone Dipropionate (Qvar) 8.7 Gm Aer.w.adap 1 PUFF INHALATION BID PRN PRN For Shortness of Breath (Reported) Clobetasol Propionate (Clobetasol Propionate) 118 Ml Shampoo 118 ML TP DAILY PRN PRN rash (Reported) Nystatin (Nystatin) 1 Each Powder.ea. 1 EACH MC DAILY PRN PRN rash (Reported) Followup Plan Follow-up plan F/U with PCP 1-2 weeks F/U with Neurology [facility] in 1 month F/U with PCP for a ziopatch. Please use tylenol in stead of Ibuprofen or naproxen for pain control. Very limited use of NASID once or twice a week if pain is severe. Discharge Diet: Heart Healthy Discharge Activity: Outpatient Physical Therapy Patient Instructions Please take aspirin, and statin daily Please f/u with o/p physical therapy Time spent 35 min Carla Moffett DO Jan 28, 2017 13:22
== END 2017-01-28 14:25 | disposition home or self-care (01) ==
LOC: SED 17:15 → MPC 19:21
PROVIDERS: ADMIT Internal Medicine; ATTEND Family Medicine
DX: G45.9 Transient cerebral ischemic attack, unspecified (principal); R29.810 Facial weakness; I10 Essential (primary) hypertension; M54.9 Dorsalgia, unspecified; E78.5 Hyperlipidemia, unspecified; J45.909 Unspecified asthma, uncomplicated; F32.9 Major depressive disorder, single episode, unspecified; M19.91 Primary osteoarthritis, unspecified site; M48.00 Spinal stenosis, site unspecified; K90.41 Non-celiac gluten sensitivity; Z79.82 Long term (current) use of aspirin; Z79.51 Long term (current) use of inhaled steroids; Z66 Do not resuscitate
CPT/HCPCS: 36415; 70450; 70549; 70553; 80053; 80061; 81000; 83036; 85025; 92610; 93005; 96360; 97161; 97167; 99285; A9585; C8929; G8978; G8979; G8980; G8996; G8997; G8998; J1644; J7030

== ENCOUNTER 2017-02-06 02:34 | Emergency (ER) | payer MEDICARE ==
[~2017-02-06] VITALS: Ht 157.5 cm; Wt 95.5 kg
[~2017-02-06 02:34] MED LIST: ALBU8.5H2 INHALATION; ASPI325T32 PO; ATOR10TA66 PO; BECL8.7A6 INHALATION; CALC500T9 PO; CLOB118S3 TP; ESCI20TA38 PO; HYDR25TA4 PO; LACT1CAP65 PO; LORA10CA9 PO; LOSA50TA37 PO; MAGN250T29 PO; MILK150C2 PO; NYST1POW29 MC
[2017-02-06 02:39] VITALS: BP 142/82; PULSE 89; RESP 18; O2SAT 97
--- NOTE | 2017-02-06 03:31 | ED.REPORT ---
HPI-Neck Pain Free Text HPI Notes Feb 06, 2017 ED Provider: Samson Snow MD Pt is a 76 year old female with a history of DM, HTN, and spinal stenosis (L4-L5 ) who presents to the ED complaining of neck pain onset 3 days ago. She c/o associated neck stiffness. The pt presented to with her symptoms yesterday and was prescribed pain medication with antispasmodic without relief. Pt states that she has a rash on her neck that is chronic. She admits to the history of shingles on her lower back, but reports that it was not recent. The pt also denies a history of kidney related medical problems. Nursing Notes Stated Complaint: NECK PAIN Chief Complaint: General Complaint Nursing Notes Reviewed: Yes Allergies: Coded Allergies: Gluten Flour (Verified Allergy, Intermediate, 02/06/17) Sulfa (Sulfonamide Antibiotics) (Verified Allergy, Intermediate, hives, ) clotrimazole (Verified Allergy, Intermediate, rash, 02/06/17) lactose (Verified Allergy, Intermediate, 02/06/17) Scheduled Aspirin (Aspirin) 325 Mg Tablet 325 MG PO DAILY Atorvastatin Calcium (Atorvastatin Calcium) 10 Mg Tablet 10 MG PO HS Calcium Carbonate (Tums) 500 Mg Tab.chew 500 MG PO DAILY Escitalopram Oxalate (Escitalopram Oxalate) 20 Mg Tablet 20 MG PO HS Hydrochlorothiazide (Hydrochlorothiazide) 25 Mg Tablet 25 MG PO DAILY Lactobacillus Acidophilus (Probiotic) 1 Each Capsule 1 EACH PO DAILY Loratadine (Loratadine) 10 Mg Capsule 10 MG PO DAILY Losartan Potassium (Losartan Potassium) 50 Mg Tablet 50 MG PO DAILY Magnesium Oxide (Magnesium) 250 Mg Tablet 250 MG PO DAILY Milk Thistle (Milk Thistle) 150 Mg Capsule 150 MG PO DAILY Scheduled PRN Albuterol HFA (Proair HFA) 8.5 Gm Hfa.aer.ad 1-2 PUFFS INHALATION Q4H PRN PRN For Shortness of Breath Beclomethasone Dipropionate (Qvar) 8.7 Gm Aer.w.adap 1 PUFF INHALATION BID PRN PRN For Shortness of Breath Clobetasol Propionate (Clobetasol Propionate) 118 Ml Shampoo 118 ML TP DAILY PRN PRN rash Nystatin (Nystatin) 1 Each Powder.ea. 1 EACH MC DAILY PRN PRN rash General Time Seen by Provider: 03:30 Chief Complaint Neck pain Hx Obtained From: Patient Arrived By: Walk-in Sudden in Onset?: No Onset Occurred: 3 days ago Symptom Duration: Since onset Location: : Anterior neck Quality: Painful Severity: Current: Moderate Severity: Maximum: Moderate Recent Healthcare: Recent doctor visit, Recent hospitalization Similar Sx Previous: No Past Medical History Past Medical History Spinal stenosis (L4-L5) Reports: Asthma, Diabetes mellitus, Hypertension Past Surgical History Right knee Cataracts Reports: Cholecystectomy, Hysterectomy Smoking History Never Smoker Social History Alcohol Use: Denies alcohol use Drug Use: Denies drug use Other Social History: Good social support Ambulatory Status Independent Review of Systems + neck stiffness Constitutional: Denies: Fever Respiratory: Denies: Non-productive cough, Shortness of breath Musculoskeletal: Reports: Neck pain Complete sys rev & neg: except as marked. Physical Exam Initial Vital Signs Vital Signs (First) Date Time Temp Pulse Resp B/P Pulse Ox O2 Delivery O2 Flow Rate FiO2 02/06/17 02:39 36.8 89 18 142/82 97 Room Air Initial VS: Reviewed, Vital signs normal Head / Eyes: Atraumatic, Normocephalic Respiratory: Breath sounds normal, Clear to auscultation, No respiratory distress Cardiovascular: Regular rate & rhythm, Heart sounds normal, Intact distal pulses Abdomen / GI: Soft, Non-tender Extremities: Vascular intact, Neuro intact Skin: Warm, Dry, No cyanosis Psychiatric: Mood/affect normal, Behavior normal, Normal thought content General/Constitutional: Awake, Alert Neck: Atraumatic, Full range of motion Psoriatic plaque in nuchal scalp area with palpable tenderness all through that region; bilateral paraspinal region of the neck is also tender to palpation. Neurologic: Oriented X3, Speech NL Interpretation & Diagnostics Lab Results Interpretation Result Diagram: 02/06/17 0440 02/06/17 0440 Test 02/06/17 04:40 White Blood Count 14.3th/mm3 (3.8-10.1) Red Blood Count 4.05mil/mm3 (3.90-5.20) Hemoglobin 11.4g/dL (12.0-15.6) Hematocrit 34.2% (35.0-46.0) Mean Corpuscular Volume 84.4fL (81-100) Mean Corpuscular Hemoglobin 28.1pg (27.0-35.0) Mean Corpuscular Hemoglobin Concent 33.3% (32.0-37.0) Red Cell Distribution Width 13.9% (12.3-15.4) Platelet Count 303bil/L (150-400) Neutrophils (%) (Auto) 78.4% (40-74) Lymphocytes (%) (Auto) 8.3% (14-46) Monocytes (%) (Auto) 11.4% (4-12) Eosinophils (%) (Auto) 1.3% (0-5) Basophils (%) (Auto) 0.3% (0-3) Sodium Level 134mEq/L (134-144) Potassium Level 3.4mEq/L (3.5-5.2) Chloride Level 95mEq/L (97-108) Carbon Dioxide Level 23mmol/L (18-29) Blood Urea Nitrogen 17mg/dL (8-27) Creatinine 0.66mg/dL (0.57-1.00) Estimat Glomerular Filtration Rate 124mL/min (>59) Glucose Level 115mg/dL (60-99) Calcium Level 9.1mg/dL (8.5-10.1) Magnesium Level 1.9mg/dL (1.6-2.6) Total Bilirubin 0.4mg/dL (0.0-1.2) Aspartate Amino Transf (AST/SGOT) 23U/L (0-50) Alanine Aminotransferase (ALT/SGPT) 13U/L (0-32) Alkaline Phosphatase 37U/L (25-165) Total Protein 7.1g/dL (6.4-8.4) Albumin 3.7g/dL (3.4-5.0) Lab Results Interpretation: Elevated white blood count Re-Eval/Medical Decision Med Decision/Clinical Course 76-year-old female with severe bilateral posterior neck pain. There is a large psoriatic plaque in that area but it is not obviously infected. She has an elevated white blood count. She has been treated with Vicodin and muscle relaxants by her primary doctor without effect. Her workup was initiated by me and now her care is now being turned over to Dr. Fish at change of shift for further evaluation and treatment. Source of Hx: Old records Counseled Regarding: Diagnosis, Lab results Discharge & Departure Shift Change Sign-Out Patient Care Transferred: Yes Discussed Complaint(s): Yes Laboratory Evaluation: Lab evaluation discussed Imaging Studies: Ordered, not yet done Primary Impression: Neck pain Additional Impression: Psoriasis Discharge Condition All VS Reviewed: Yes Condition: Stable Referrals: Michael Orozco MD (PCP) Care Transferred to: Dr. Fish Care Transferred at: 06:00 ED Scribe Statement Portions of this note were transcribed by Marlena Orozco. I, Dr. Snow personally performed the history, physical exam and medical decision-making; I reviewed and confirmed the accuracy of the information in the transcribed note. Signed by: Mariajose Nicolas, 02/06/17 and 04:30. copies to: Michael Orozco MD, Howard L MD Feb 06, 2017 03:31 Marlena Holloway Feb 06, 2017 03:49
[2017-02-06] MEDS ORDERED: HYDROmorphone 1 mg/mL Inj IM ONE (03:55)
[2017-02-06] MEDS ORDERED: Ondansetron 2 mg/mL 2 mL Inj IV PRN (04:45)
[2017-02-06] MEDS ORDERED: HYDROmorphone 0.5 mg/0.5 mL iSecure Syringe IVPUSH PRN (04:45)
[2017-02-06] MEDS ORDERED: Ketorolac 15 mg/mL Inj IV ONE (04:45)
[2017-02-06] MEDS ORDERED: 0.9% Sodium Chloride 1,000 ML IV ONE (04:45)
[2017-02-06 04:56] LABS: BASOPHILS % (AUTO) 0.3 % (0-3); EOSINOPHILS % (AUTO) 1.3 % (0-5); MONOCYTES % (AUTO) 11.4 % (4-12); Mean Corpuscular Hemoglobin 28.1 pg (27.0-35.0); Mean Corpuscular Volume 84.4 fL (81-100); NEUTROPHILS % (AUTO) 78.4 % (40-74); Platelet Count 303 bil/L (150-400)
[2017-02-06 05:15] LABS: Magnesium 1.9 mg/dL (1.6-2.6)
[2017-02-06 06:12] VITALS: BP 129/74; PULSE 83; RESP 14; O2SAT 97
[2017-02-06] MEDS ORDERED: DIAZ5TAB3 PO (06:55)
[2017-02-06 07:19] VITALS: BP 125/59; PULSE 90; RESP 20
== END 2017-02-06 07:15 | disposition home or self-care (01) ==
LOC: SED 02:34
DX: M54.2 Cervicalgia (principal); E11.9 Type 2 diabetes mellitus without complications; I10 Essential (primary) hypertension; L40.9 Psoriasis, unspecified; M48.06 Spinal stenosis, lumbar region; J45.909 Unspecified asthma, uncomplicated; Z88.2 Allergy status to sulfonamides; Z79.82 Long term (current) use of aspirin
CPT/HCPCS: 36415; 80053; 83735; 85025; 96361; 96372; 96374; 96375; 99285; J1170; J1885; J2405; J7030

== ENCOUNTER 2017-02-06 21:48 | Emergency (ER) | payer MEDICARE ==
[~2017-02-06] VITALS: Ht 157.5 cm; Wt 95.5 kg
[~2017-02-06 21:48] MED LIST changes: +DIAZ5TAB3 PO
[2017-02-06 21:56] VITALS: BP 151/81; PULSE 82; RESP 18; O2SAT 98
--- NOTE | 2017-02-07 02:14 | ED.REPORT ---
HPI-Neck Pain Free Text HPI Notes Feb 07, 2017 ED Provider: Pierre Martinez MD A 76 year old female with a history of diabetes, hypertension, psoriasis and spinal stenosis (L4-L5) presents to the ED complaining of neck pain. The pain began when the pt woke up four days ago, though the pt denies trauma. The pt describes the pain as "tightness" that is exacerbated by movement and swallowing. She has tried different medications to treat her symptoms, including Valium and Dilaudid. She had no relief with Valium, but found that Dilaudid did relieve her pain temporarily. The pt denies numbness, weakness, fever or chills. Nursing Notes Stated Complaint: CONT NECK AND SPINAL PAIN Chief Complaint: General Complaint Nursing Notes Reviewed: Yes ([employer], [employer] not reconciled) Allergies: Coded Allergies: Gluten Flour (Verified Allergy, Intermediate, 02/06/17) Sulfa (Sulfonamide Antibiotics) (Verified Allergy, Intermediate, hives, ) clotrimazole (Verified Allergy, Intermediate, rash, 02/06/17) lactose (Verified Allergy, Intermediate, 02/06/17) Scheduled Aspirin (Aspirin) 325 Mg Tablet 325 MG PO DAILY Atorvastatin Calcium (Atorvastatin Calcium) 10 Mg Tablet 10 MG PO HS Calcium Carbonate (Tums) 500 Mg Tab.chew 500 MG PO DAILY Escitalopram Oxalate (Escitalopram Oxalate) 20 Mg Tablet 20 MG PO HS Hydrochlorothiazide (Hydrochlorothiazide) 25 Mg Tablet 25 MG PO DAILY Lactobacillus Acidophilus (Probiotic) 1 Each Capsule 1 EACH PO DAILY Loratadine (Loratadine) 10 Mg Capsule 10 MG PO DAILY Losartan Potassium (Losartan Potassium) 50 Mg Tablet 50 MG PO DAILY Magnesium Oxide (Magnesium) 250 Mg Tablet 250 MG PO DAILY Milk Thistle (Milk Thistle) 150 Mg Capsule 150 MG PO DAILY Scheduled PRN Albuterol HFA (Proair HFA) 8.5 Gm Hfa.aer.ad 1-2 PUFFS INHALATION Q4H PRN PRN For Shortness of Breath Beclomethasone Dipropionate (Qvar) 8.7 Gm Aer.w.adap 1 PUFF INHALATION BID PRN PRN For Shortness of Breath Clobetasol Propionate (Clobetasol Propionate) 118 Ml Shampoo 118 ML TP DAILY PRN PRN rash Diazepam (Diazepam) 5 Mg Tablet 5 MG PO DAILY PRN PRN For Spasm Nystatin (Nystatin) 1 Each Powder.ea. 1 EACH MC DAILY PRN PRN rash General Time Seen by Provider: 02:10 Chief Complaint Neck pain Hx Obtained From: Patient Arrived By: Walk-in Sudden in Onset?: Yes Onset Occurred: 3 days ago Symptom Duration: Since onset Recent Healthcare: Recent doctor visit, Recent hospitalization Similar Sx Previous: No Past Medical History Past Medical History Notes: Admit 01/2017 for CVA symptoms, MRI negative for acute process Seen yesterday in ED For neck pain Past Medical History Spinal stenosis (L4-L5) Reports: Asthma, Diabetes mellitus, Hypertension Past Surgical History Right knee Cataracts Reports: Cholecystectomy, Hysterectomy Smoking History Never Smoker Social History Alcohol Use: Denies alcohol use Drug Use: Denies drug use Other Social History: Good social support Ambulatory Status Independent Review of Systems Respiratory: Denies: Non-productive cough, Shortness of breath Cardiovascular: Denies: Chest pain GI: Denies: Abdominal pain, Nausea, Vomiting Musculoskeletal: Reports: Neck pain Skin: Denies Rash Complete sys rev & neg: except as marked. Physical Exam Initial Vital Signs Vital Signs (First) Date Time Temp Pulse Resp B/P Pulse Ox O2 Delivery O2 Flow Rate FiO2 02/06/17 21:56 36.6 82 18 151/81 98 Room Air Initial VS: Reviewed, Vital signs normal General/Constitutional: Awake, Alert uncomfortable Neck: Atraumatic, Supple midline neck pain Neurologic: Oriented X3, Speech NL, No motor deficits, No sensory deficits ENT: Atraumatic, Airway patent, Mucous membranes moist Respiratory / Chest: Atraumatic, Breath sounds NL, Breath sounds = bilat, No respiratory distress Cardiovascular: Heart rate NL, Regular rhythm, Heart sounds NL Back: Atraumatic, Full range of motion Upper Extremity / MS: Atraumatic, Full range of motion Skin: Atraumatic, Color NL, No rash, Warm, Dry Head / Eyes: Normocephalic, PERRL, EOMI psoriasis of scalp without signs of infection Abdomen: Atraumatic, Soft, Non-tender Lower Extremity / Pelvis / MS: Atraumatic, Full range of motion Psychiatric: Affect NL, Mood NL Interpretation & Diagnostics Lab Results Interpretation Lab Results Interpretation: repeat CBC pending Re-Eval/Medical Decision Med Decision/Clinical Course This is a 76-year-old female who returns to emergency department complaining of ongoing neck pain. The patient seen last night reports chest pain, current mechanical popping and discomfort, has been fairly miserable. She requests a medicine called to "help me relax" and help with the discomfort and reports the medications that included muscle relaxants a migraine medicines really have not helped at all. She has a recent admission for TIA with a negative MRA of the brain and neck. She has no numbness weakness paresthesias. She denies any recent trauma, she denies fevers chills or infectious symptoms. Review of the notes indicates she did have a nonspecific leukocytosis without a definite cause , and there was a concern about a rash in the back of her neck-although when I examine her she has psoriasis of the scalp, and I do not appreciate any clinical signs of cellulitis or infection of the neck. She reports decreased range of motion, both laterally, as well as flexion and extension. However she does not really have a headache, and isolated neck discomfort that she describes to me, it does not sound migrainous to my ears at this time. I do not appreciate clinical signs of meningismus. There is an original plan to obtain an MRI of the cervical spine to evaluate for other pathology given her age, given she done better this and been canceled. She remains concerned. At this point she is feeling a dose of pain medicine and received a dose of Dilaudid she reports helped markedly. A repeat CBC is being obtain because of the leukocytosis-although clinically I am not appreciating signs of infection, the plan is to recheck and see a any other markers of a more occult process. She has had no recent spinal instrumentation. Again I do not appreciate clinical signs of meningitis need LP at this time. The plan is dull her for a few hours, and then obtain an MRI of the neck for further evaluation. The patient is being turned over to Dr. Peter at change of shift. She is much improved on reevaluation. Source of Hx: Old records Re-Evaluation/Progress : Time of Eval: 02:25 Patient Status: Condition improved Re-Evaluation/Progress Note: Pt rechecked, who is resting. The plan for MRI in the morning is discussed. The pt understands and agrees with the plan. All questions are addressed at this time. Differential Diagnosis: Negative: Abrasion, Epiglottitis, Laceration, Lemierre' s disease, Meningitis, Spondylosis, Stab wound neck, Subarachnoid hemorrhage Counseled Regarding: Diagnosis, Lab results Discharge & Departure Shift Change Sign-Out Patient Care Transferred: Yes Discussed Complaint(s): Yes Laboratory Evaluation: Ordered, not yet done Imaging Studies: Ordered, not yet done Primary Impression: Neck pain Discharge Condition All VS Reviewed: Yes Condition: Stable Referrals: Michael Orozco MD (PCP) Care Transferred to: Dr. Snow Care Transferred at: 03:00 ED Scribe Statement Portions of this note were transcribed by Josie Walker. I, Dr. Martinez personally performed the history, physical exam and medical decision-making; I reviewed and confirmed the accuracy of the information in the transcribed note. Signed by: Mraiajose Damon, 02/07/2017 and 0243. copies to: Michael Orozco MD, Matthew F MD Feb 07, 2017 02:14 JOSIE WALKER Feb 07, 2017 02:28
[2017-02-07] MEDS ORDERED: HYDROmorphone 1 mg/mL Inj IM ONE (02:30)
[2017-02-07 03:50] LABS: BASOPHILS % (AUTO) 0.3 % (0-3); EOSINOPHILS % (AUTO) 1.7 % (0-5); MONOCYTES % (AUTO) 13.6 % (4-12); Mean Corpuscular Hemoglobin 28.3 pg (27.0-35.0); Mean Corpuscular Volume 84.8 fL (81-100); NEUTROPHILS % (AUTO) 72.4 % (40-74); Platelet Count 303 bil/L (150-400)
[2017-02-07] MEDS ORDERED: Ketorolac 15 mg/mL Inj IV ONE (04:40)
[2017-02-07] MEDS: HYDROmorphone 0.5 mg/0.5 mL iSecure Syringe IVPUSH PRN ×2 (05:01→07:28)
[2017-02-07 06:12] VITALS: BP 122/63; PULSE 80; RESP 16; O2SAT 97
[2017-02-07] MEDS ORDERED: HYDROcodone-APAP 5-325 mg Tablet PO ONE (09:55)
--- NOTE | 2017-02-07 10:16 | DRSVH ---
PROCEDURE: MRI CERVICAL SPINE WITH AND WITHOUT CONTRAST ([id number]) INDICATIONS: neck pain TECHNIQUE: Noncontrast sagittal T1 spin echo and T2 fast spin echo, sagittal STIR, foraminal oblique sagittal T2 fast spin echo, axial gradient echo or T2 fast spin echo through the cervical spine. After the admi nistration of contrast, axial and sagittal T1 spin echo with fat saturation through the cervical spin e. COMPARISON: [facility], CT, CT BRAIN WO CON, 01/26/2017, 17:51. [facility], MR, MR STROKE PROTOCOL, 01/26/2017, 22:51. FINDINGS: Image quality: Diagnostic. Spinal Cord: Visualized spinal cord has normal size and signal. No cerebellar tonsillar herniation. The imaged midline intracranial structures are grossly unremarkable. Paraspinous Soft Tissues: No paravertebral masses. Prevertebral soft tissues are normal in thicknes s. No definite lymphadenopathy is identified. Bones: The vertebral body heights and marrow signal are well-maintained. There is no evidence of an acute fracture or dislocation. No suspicious osseous lesions are identified. C2-C3: A rounded structure demonstrating increased T2 signal along the posterior aspect of the C2 maria guadalupe tebral body is identified, which is felt to represent degenerative cystic change and best appreciated on the foraminal oblique images. There is disc desiccation and uncal vertebral hypertrophic changes with severe bilateral facet arthropathy (left greater than right). These findings result in moderat e right and severe left neural foraminal stenosis. There is no significant central canal stenosis. C3-C4: There is disc desiccation and uncovertebral hypertrophic changes without significant disc bulg e. Moderate to severe facet arthrosis is noted (left greater than right). There is no central canal stenosis. However, there is severe bilateral neural foraminal narrowing. C4-C5: There is disc desiccation, diffuse disc bulge, disc height loss, and severe facet arthrosis. These findings result in severe central canal stenosis and severe bilateral neural foraminal stenosis . C5-C6: There is disc height loss, diffuse disc bulge, endplate irregularity, uncovertebral hypertroph ic changes, and moderate to severe bilateral facet arthropathy. These findings result in severe bila teral neural foraminal narrowing and central canal stenosis. C6-C7: There is prominent disc height loss, diffuse disc bulge, disc osteophyte complex, and facet ar throsis. There is severe central canal stenosis and moderate to severe bilateral neural foraminal na rrowing. C7-T1: There is mild disc height loss, mild diffuse disc bulge, and mild to moderate bilateral facet arthrosis. These findings result in moderate central canal and [id number] bilateral neural for aminal narrowing (right greater than left). IMPRESSION: 1. No acute fracture or dislocation of the cervical spine. 2. Severe multilevel degenerative changes resulting in multilevel severe central canal and neurofora catracho narrowing. 3. No focal disc protrusions or extrusions. 4. Central canal stenosis: C3-C4 (severe), C4-C5 (severe), C5-C6 (severe), C6-C7 (moderate), C7-T1 ( moderate). 5. Neuroforaminal stenosis: C2-3 (moderate right, severe left), C3-C4 (severe bilateral), C4-C5 (sev ere bilateral), C5-C6 (severe bilateral), C6-C7 (severe bilateral), C7-T1 (mild to moderate bilateral ). Dictated by: Inder Powers M.D. on 02/07/2017 at 9:02 Approved by: Inder Powers M.D. on 02/07/2017 at 9:14
[2017-02-07 10:29] VITALS: BP 142/67; PULSE 78; RESP 16; O2SAT 95
[2017-02-07 11:59] VITALS: BP 124/58; PULSE 78; RESP 18; O2SAT 95
== END 2017-02-07 11:24 | disposition home or self-care (01) ==
LOC: SED 21:48
DX: M54.2 Cervicalgia (principal); E11.9 Type 2 diabetes mellitus without complications; I10 Essential (primary) hypertension; L40.9 Psoriasis, unspecified; M48.06 Spinal stenosis, lumbar region; J45.909 Unspecified asthma, uncomplicated; Z88.2 Allergy status to sulfonamides; Z79.82 Long term (current) use of aspirin
CPT/HCPCS: 36415; 72156; 85025; 96372; 96374; 96375; 99285; A9585; J1170; J1885